=== PATIENT | male | born 1960 | race Two or more races ===

== ENCOUNTER 2020-09-15 23:48 | Emergency (ER) | payer OTHER ==
[2020-09-16 00:04] VITALS: BP 123/79; PULSE 76; TEMP 98; BMI 30.4
[2020-09-16 01:32] LABS: EPI CELLS 22 /uL (0-25.1); HYALINE CASTS 3 /uL (0-3.1); URINE APPEARANCE CLEAR; URINE BACTERIA 8 /uL (0-1359); URINE BILIRUBIN NEGATIVE (NEGATIVE); URINE COLOR YELLOW; URINE GLUCOSE (UA) NEGATIVE (NEGATIVE); URINE KETONE TRACE (NEGATIVE); URINE LEUK ESTERASE 1+ (NEGATIVE); URINE NITRITE NEGATIVE (NEGATIVE); URINE PROTEIN NEGATIVE (NEGATIVE); URINE RBC 1528 /uL (0-23.9); URINE UROBILINOGEN 0.2 mg/dL (0.2-1.0); URINE WBC 146 /uL (0-25.8)
== END 2020-09-16 10:41 | disposition home or self-care (01) ==
LOC: JER 23:48
DX: R31.0 Gross hematuria (principal)
CPT/HCPCS: 76775-TC; 76856-TC; 81003; 87086; 99283-25

== ENCOUNTER 2022-05-30 16:55 | Inpatient (IN) | payer OTHER ==
[2022-05-30 19:01] LABS: BASO % 0.7 % (0-2.0); EOS % 1.2 % (0-4.5); HEMATOCRIT 37.5 % (35.4-49); HEMOGLOBIN 12.8 GM/dL (11.7-16.9); LYMPH % 31.1 % (8-40); MCH 30.6 pg (25.7-33.7); MCHC 34.1 g/dl (32.0-35.9); MEAN CELL VOLUME 89.7 fl (80-96); MONO % 10.6 % (3.8-10.2); NEUT % 56.4 % (42.8-82.8); PLATELET COUNT 276 10^3/uL (134-434); RBC 4.18 M/mm3 (4.00-5.60); RDW 13.3 % (11.9-15.9); WHITE BLOOD COUNT 9.7 K/mm3 (4.0-10.0)
[2022-05-30 19:20] LABS: CALCIUM 8.9 mg/dL (8.5-10.1)
[2022-05-30 19:21] LABS: ALBUMIN 3.6 g/dl (3.4-5.0); BLOOD UREA NITROGEN 14.8 mg/dL (7-18); MAGNESIUM 2.3 mg/dL (1.8-2.4)
[2022-05-30 19:24] LABS: CREATININE 0.7 mg/dL (0.55-1.3); PHOSPHOROUS 3.8 mg/dL (2.5-4.9)
[2022-05-30 19:25] LABS: BILIRUBIN,TOTAL 0.2 mg/dL (0.2-1); TOT PROT 7.2 g/dl (6.4-8.2)
[2022-05-30] MEDS ORDERED: ASPIRIN 325 MG TABLET PO ONE (22:16)
[2022-05-30] MEDS ORDERED: ASPIRIN 325 MG TABLET ONE (22:18)
[2022-05-30 23:25] LABS: EPI CELLS 20 /uL (0-25.1); HYALINE CASTS 56 /uL (0-3.1); URINE APPEARANCE CLOUDY; URINE BACTERIA 21 /uL (0-1359); URINE BILIRUBIN NEGATIVE (NEGATIVE); URINE COLOR DK YELLOW; URINE GLUCOSE (UA) NEGATIVE (NEGATIVE); URINE KETONE TRACE (NEGATIVE); URINE LEUK ESTERASE 1+ (NEGATIVE); URINE NITRITE NEGATIVE (NEGATIVE); URINE PROTEIN TRACE (NEGATIVE); URINE RBC 24 /uL (0-23.9); URINE WBC 577 /uL (0-25.8)
[2022-05-30 23:28] LABS: URINE BENZODIAZEPINES NEGATIVE (NEGATIVE)
[2022-05-30 23:29] LABS: METHADONE, UR NEGATIVE (NEGATIVE); OPIATES, URI NEGATIVE (NEGATIVE); PHENCYCLIDINE,URINE NEGATIVE (NEGATIVE); URINE AMPHETAMINES NEGATIVE (NEGATIVE); URINE BARBITURATES NEGATIVE (NEGATIVE)
[2022-05-30 23:36] LABS: COCAINE, UR NEGATIVE (NEGATIVE)
[2022-05-31] MEDS ORDERED: traZODone HCL 50 MG TABLET (FP) PO ONE (01:44)
[2022-05-31] MEDS ORDERED: ACETAMINOPHEN 500 MG TABLET (FP) PO PRN (01:46)
[2022-05-31 06:47] LABS: BASO % 0.9 % (0-2.0); EOS % 1.6 % (0-4.5); HEMOGLOBIN 12.6 GM/dL (11.7-16.9); LYMPH % 38.4 % (8-40); MCH 30.4 pg (25.7-33.7); MCHC 34.2 g/dl (32.0-35.9); MEAN CELL VOLUME 88.8 fl (80-96); MEAN PLT VOLUME 8.6 fl (7.5-11.1); MONO % 10.8 % (3.8-10.2); NEUT % 48.3 % (42.8-82.8); PLATELET COUNT 285 10^3/uL (134-434); RBC 4.16 M/mm3 (4.00-5.60); RDW 13.1 % (11.9-15.9)
[2022-05-31 06:53] LABS: INR 1.2 (0.83-1.09); PROTHROMBIN TIME (PATIENT) 13.9 SEC (9.7-13.0)
[2022-05-31 06:56] LABS: ACTIVATED PTT 31.4 SECONDS (25.2-36.5)
[2022-05-31 07:14] LABS: CALCIUM 8.8 mg/dL (8.5-10.1)
[2022-05-31 07:15] LABS: BLOOD UREA NITROGEN 20.6 mg/dL (7-18)
[2022-05-31 07:18] LABS: CREATININE 0.8 mg/dL (0.55-1.3)
[2022-05-31] MEDS ORDERED: CEFTRIAXONE 1 GM in DEXTROSE 5%-WATER - 50 ML IVPB SCH (10:00)
[2022-05-31] MEDS ORDERED: risperiDONE 0.5 MG TABLET ONE ×2 (10:41→21:55)
[2022-05-31] MEDS ORDERED: FAMOTIDINE 20 MG TABLET ONE (10:41)
[2022-05-31] MEDS ORDERED: SENNOSIDES 8.6MG TABLET (FP) PO ONE (10:41)
[2022-05-31] MEDS ORDERED: ASPIRIN COATED 81 MG TABLET.EC ONE (10:41)
[2022-05-31] MEDS ORDERED: CLOPIDOGREL BISULFATE 75 MG TABLET (FP) ONE (10:41)
[2022-05-31] MEDS ORDERED: LISINOPRIL 20 MG TABLET ONE (10:41)
[2022-05-31] MEDS ORDERED: CITALOPRAM HYDROBROMIDE 10 MG TABLET ONE (10:42)
[2022-05-31] MEDS ORDERED: CEFTRIAXONE 1 GM/50 ML BAG ONE (10:42)
[2022-05-31] MEDS: LISINOPRIL 20 MG TABLET PO SCH (10:55)
[2022-05-31] MEDS: ASPIRIN COATED 81 MG TABLET.EC PO SCH (10:55)
[2022-05-31] MEDS: CITALOPRAM HYDROBROMIDE 20 MG TABLET PO SCH (10:55)
[2022-05-31] MEDS: CYANOCOBALAMIN (VITAMIN B-12) 100 MCG TABLET PO SCH (10:55)
[2022-05-31] MEDS: SENNOSIDES 8.6MG TABLET (FP) PO SCH (10:55)
[2022-05-31] MEDS: FAMOTIDINE 20 MG TABLET PO SCH (10:55)
[2022-05-31] MEDS: CLOPIDOGREL BISULFATE 75 MG TABLET (FP) PO SCH (10:55)
[2022-05-31] MEDS: risperiDONE 1 MG TABLET PO SCH ×2 (10:55→22:07)
[2022-05-31] MEDS ORDERED: traMADol HCL 50 MG TABLET ONE (21:54)
[2022-05-31] MEDS ORDERED: ATORVASTATIN CA 20 MG TABLET (FP) ONE (21:54)
[2022-05-31] MEDS: traZODone HCL 100 MG TABLET (FP) PO SCH (22:07)
[2022-05-31] MEDS: ATORVASTATIN CA 20 MG TABLET (FP) PO SCH (22:07)
[2022-06-01 00:42] VITALS: BMI 27.2
[2022-06-01 08:10] LABS: BASO % 0.7 % (0-2.0); EOS % 1.9 % (0-4.5); HEMATOCRIT 38.4 % (35.4-49); HEMOGLOBIN 13.1 GM/dL (11.7-16.9); LYMPH % 37.5 % (8-40); MCH 30.6 pg (25.7-33.7); MCHC 34.1 g/dl (32.0-35.9); MEAN CELL VOLUME 89.8 fl (80-96); MEAN PLT VOLUME 8.5 fl (7.5-11.1); MONO % 11.6 % (3.8-10.2); NEUT % 48.3 % (42.8-82.8); PLATELET COUNT 279 10^3/uL (134-434); RBC 4.27 M/mm3 (4.00-5.60); RDW 13.5 % (11.9-15.9); WHITE BLOOD COUNT 8.4 K/mm3 (4.0-10.0)
[2022-06-01 08:15] LABS: CALCIUM 8.7 mg/dL (8.5-10.1)
[2022-06-01 08:18] LABS: CREATININE 0.7 mg/dL (0.55-1.3)
[2022-06-01] MEDS: CEFTRIAXONE 1 GM in DEXTROSE 5%-WATER - 50 ML IVPB SCH (09:25)
[2022-06-01] MEDS: SENNOSIDES 8.6MG TABLET (FP) PO SCH (09:26)
[2022-06-01] MEDS: ASPIRIN COATED 81 MG TABLET.EC PO SCH (09:26)
[2022-06-01] MEDS: CLOPIDOGREL BISULFATE 75 MG TABLET (FP) PO SCH (09:26)
[2022-06-01] MEDS: CITALOPRAM HYDROBROMIDE 20 MG TABLET PO SCH (09:26)
[2022-06-01] MEDS: risperiDONE 1 MG TABLET PO SCH ×2 (09:26→21:11)
[2022-06-01] MEDS: FAMOTIDINE 20 MG TABLET PO SCH (09:26)
[2022-06-01] MEDS: LISINOPRIL 20 MG TABLET PO SCH (09:26)
[2022-06-01] MEDS: CYANOCOBALAMIN (VITAMIN B-12) 100 MCG TABLET PO SCH (10:40)
[2022-06-01] MEDS ORDERED: traZODone HCL 50 MG TABLET (FP) ONE (21:02)
[2022-06-01] MEDS: ATORVASTATIN CA 20 MG TABLET (FP) PO SCH (21:11)
[2022-06-01] MEDS: traZODone HCL 100 MG TABLET (FP) PO SCH (21:13)
[2022-06-02 08:38] LABS: BASO % 0.6 % (0-2.0); EOS % 1.8 % (0-4.5); HEMATOCRIT 39.2 % (35.4-49); HEMOGLOBIN 13.3 GM/dL (11.7-16.9); LYMPH % 30.5 % (8-40); MCH 30.6 pg (25.7-33.7); MEAN CELL VOLUME 90.1 fl (80-96); MEAN PLT VOLUME 8.3 fl (7.5-11.1); MONO % 11.6 % (3.8-10.2); NEUT % 55.5 % (42.8-82.8); PLATELET COUNT 309 10^3/uL (134-434); RBC 4.35 M/mm3 (4.00-5.60); RDW 13.7 % (11.9-15.9); WHITE BLOOD COUNT 7.4 K/mm3 (4.0-10.0)
[2022-06-02 09:15] LABS: ALBUMIN 3.5 g/dl (3.4-5.0); BLOOD UREA NITROGEN 20.2 mg/dL (7-18)
[2022-06-02 09:18] LABS: CREATININE 0.8 mg/dL (0.55-1.3)
[2022-06-02 09:20] LABS: BILIRUBIN,TOTAL 0.3 mg/dL (0.2-1); TOT PROT 7.3 g/dl (6.4-8.2)
[2022-06-02] MEDS: SENNOSIDES 8.6MG TABLET (FP) PO SCH (09:39)
[2022-06-02] MEDS: CLOPIDOGREL BISULFATE 75 MG TABLET (FP) PO SCH (09:39)
[2022-06-02] MEDS: CITALOPRAM HYDROBROMIDE 20 MG TABLET PO SCH (09:39)
[2022-06-02] MEDS: ASPIRIN COATED 81 MG TABLET.EC PO SCH (09:40)
[2022-06-02] MEDS: LISINOPRIL 20 MG TABLET PO SCH (09:40)
[2022-06-02] MEDS: FAMOTIDINE 20 MG TABLET PO SCH (09:40)
[2022-06-02] MEDS: risperiDONE 1 MG TABLET PO SCH ×2 (09:40→22:13)
[2022-06-02] MEDS: CYANOCOBALAMIN (VITAMIN B-12) 100 MCG TABLET PO SCH (09:40)
[2022-06-02] MEDS: CEFTRIAXONE 1 GM in DEXTROSE 5%-WATER - 50 ML IVPB SCH (09:52)
[2022-06-02] MEDS: AMOX TR/POT CLAV 500MG/125MG TABLETS (FP) PO SCH (17:26)
[2022-06-02] MEDS ORDERED: traZODone HCL 50 MG TABLET (FP) ONE (20:45)
[2022-06-02] MEDS: traZODone HCL 100 MG TABLET (FP) PO SCH (22:12)
[2022-06-02] MEDS: ATORVASTATIN CA 20 MG TABLET (FP) PO SCH (22:13)
[2022-06-03 04:53] VITALS: RESP 18
[2022-06-03] MEDS: CLOPIDOGREL BISULFATE 75 MG TABLET (FP) PO SCH (09:07)
[2022-06-03] MEDS: SENNOSIDES 8.6MG TABLET (FP) PO SCH (09:07)
[2022-06-03] MEDS: ASPIRIN COATED 81 MG TABLET.EC PO SCH (09:07)
[2022-06-03] MEDS: risperiDONE 1 MG TABLET PO SCH ×2 (09:07→22:03)
[2022-06-03] MEDS: CITALOPRAM HYDROBROMIDE 20 MG TABLET PO SCH (09:07)
[2022-06-03] MEDS: AMOX TR/POT CLAV 500MG/125MG TABLETS (FP) PO SCH ×2 (09:07→17:11)
[2022-06-03] MEDS: LISINOPRIL 20 MG TABLET PO SCH (09:07)
[2022-06-03] MEDS: FAMOTIDINE 20 MG TABLET PO SCH (09:07)
[2022-06-03] MEDS: CYANOCOBALAMIN (VITAMIN B-12) 100 MCG TABLET PO SCH (09:09)
[2022-06-03] MEDS ORDERED: traZODone HCL 50 MG TABLET (FP) ONE (21:49)
[2022-06-03] MEDS: traZODone HCL 100 MG TABLET (FP) PO SCH (22:03)
[2022-06-03] MEDS: ATORVASTATIN CA 20 MG TABLET (FP) PO SCH (22:03)
[2022-06-04] MEDS: AMOX TR/POT CLAV 500MG/125MG TABLETS (FP) PO SCH (07:44)
[2022-06-04] MEDS: risperiDONE 1 MG TABLET PO SCH (09:03)
[2022-06-04] MEDS: CLOPIDOGREL BISULFATE 75 MG TABLET (FP) PO SCH (09:03)
[2022-06-04] MEDS: SENNOSIDES 8.6MG TABLET (FP) PO SCH (09:03)
[2022-06-04] MEDS: LISINOPRIL 20 MG TABLET PO SCH (09:03)
[2022-06-04] MEDS: ASPIRIN COATED 81 MG TABLET.EC PO SCH (09:04)
[2022-06-04] MEDS: CITALOPRAM HYDROBROMIDE 20 MG TABLET PO SCH (09:04)
[2022-06-04] MEDS: FAMOTIDINE 20 MG TABLET PO SCH (09:04)
[2022-06-04] MEDS: CYANOCOBALAMIN (VITAMIN B-12) 100 MCG TABLET PO SCH (09:05)
[2022-06-04 09:11] VITALS: BP 139/69; PULSE 65; TEMP 98.5
[2022-06-04] MEDS ORDERED: ATORVASTATIN CA 20 MG TABLET (FP) PO SCH (09:16)
[2022-06-04 11:34] LABS: TRIGLYCERIDES 61 mg/dL (0-150)
[2022-06-04 11:35] LABS: CHOLESTEROL 99 mg/dL (50-200); LDL CHOLESTEROL (ONLY SJRH) 51 mg/dL (5-100)
[2022-06-04 11:37] LABS: HDL CHOLESTEROL 39 mg/dL (40-60)
== END 2022-06-04 11:40 | disposition home or self-care (01) | DRG 45 ==
LOC: JER 16:55 → JERBED 21:11 → J4W 05-31 22:45
PROVIDERS: ADMIT Internal Medicine; ATTEND Internal Medicine
DX: I63.89 Other cerebral infarction (principal); N39.0 Urinary tract infection, site not specified; I69.351 Hemiplegia and hemiparesis following cerebral infarction affecting right dominant side; F31.9 Bipolar disorder, unspecified; B95.2 Enterococcus as the cause of diseases classified elsewhere; N32.81 Overactive bladder; F25.9 Schizoaffective disorder, unspecified; F19.10 Other psychoactive substance abuse, uncomplicated; I10 Essential (primary) hypertension; R63.4 Abnormal weight loss; E78.5 Hyperlipidemia, unspecified; Z68.27 Body mass index [BMI] 27.0-27.9, adult
CPT/HCPCS: 0241U-QW; 36415; 70450-TC; 70551-TC; 71045-TC-FY; 72125-TC; 76700-TC; 80048; 80053; 80061; 80307; 81003; 82105; 82962; 83615; 83735; 84100; 84484; 85025; 85610; 85730; 87077; 87086; 87186; 93005; 93010; 93306-TC; 93880-TC; 97116-GP; 97161-GP; 99285-25; G0480

== ENCOUNTER 2023-01-01 09:47 | Day surgery (SDC) | payer OTHER ==
[2023-01-01 10:18] VITALS: BMI 31.3
[2023-01-01] MEDS ORDERED: PROPOFOL 80 ML ONE (10:18)
[2023-01-01 12:19] VITALS: TEMP 97
[2023-01-01 12:57] VITALS: RESP 19
[2023-01-01 13:00] VITALS: BP 139/77; PULSE 65
== END 2023-01-01 13:00 | disposition home or self-care (01) ==
LOC: FASU-ENDO 09:47
PROVIDERS: ATTEND Internal Medicine Gastroenterology
PROC: 0DBL8ZX Excision of Transverse Colon, Via Natural or Artificial Opening Endoscopic, Diagnostic (ICD-10-PCS; 2023-01-01)
PROC: 0DBM8ZX Excision of Descending Colon, Via Natural or Artificial Opening Endoscopic, Diagnostic (ICD-10-PCS; 2023-01-01)
PROC: 0DBK8ZX Excision of Ascending Colon, Via Natural or Artificial Opening Endoscopic, Diagnostic (ICD-10-PCS; principal; 2023-01-01 11:33)
DX: Z12.11 Encounter for screening for malignant neoplasm of colon (principal); D12.2 Benign neoplasm of ascending colon; D12.3 Benign neoplasm of transverse colon; D12.4 Benign neoplasm of descending colon; K64.1 Second degree hemorrhoids; K63.89 Other specified diseases of intestine